=== PATIENT | male | born 1990 | race Caucasian/White ===

== ENCOUNTER → 2022-07-29 23:20 | Outpatient (CLI) | payer BC, SELFPAY ==
[2022-07-29 18:15] LABS: Basophils % 0.3 % (0.1-2.0); Eosinophils # 0.1 K/mm3 (0.0-0.4); Eosinophils % 1.1 % (0.1-12.0); Hematocrit 48.2 % (42.0-52.0); Hemoglobin 16.3 g/dL (14.1-18.0); Lymphocytes # 1.5 K/mm3 (0.7-4.5); Lymphocytes % 15.3 % (10-50); Mean Corpuscular HGB Conc 33.9 g/dL (31.8-35.4); Mean Corpuscular Hemoglobin 30.6 pg (27.0-31.2); Mean Corpuscular Volume 90.2 fl (80-94); Mean Platelet Volume 9.2 fl (7.4-10.4); Monocytes # 0.4 K/mm3 (0.1-1.0); Monocytes % 4.4 % (1.7-9.3); Neutrophils # 7.6 K/mm3 (1.8-7.8); Platelet Count 317 K/mm3 (142-424); Red Blood Count 5.35 M/mm3 (4.60-6.20); Red Cell Distribution Width 13.6 % (11.5-17.5); White Blood Count 9.6 K/mm3 (4.8-10.8)
[2022-07-29 18:20] LABS: Hemoglobin A1C 4.7 % (4.0-6.0)
[2022-07-29 18:48] LABS: Alanine Aminotransferase 48 U/L (12-78); Albumin/Globulin Ratio 1.9 (1.1-1.8); Alkaline Phosphatase 116 U/L (38-126); Anion Gap 17.4 mEq/L (5-15); Aspartate Amino Transferase 35 U/L (17-59); Bilirubin,Total 1.5 mg/dl (0.2-1.3); Blood Urea Nitrogen 11 mg/dl (9-20); Calcium 9.4 mg/dl (8.4-10.2); Carbon Dioxide 22 mmol/L (22.0-30.0); Chloride 105 mmol/L (98-107); Chol/HDL Ratio 6.9 (1-3.5); Cholesterol 249 mg/dl (140-200); Estimated Glomerular Filt Rate 97 ml/min (>60); GFR (African American) 118 ML/MIN (>60); Globulin 2.6 g/dL (1.3-3.2); Glucose 124 mg/dl (74-100); HDL Cholesterol 36 mg/dl (40-60); Potassium 4.4 mmoL/L (3.5-5.1); Sodium 140 mmol/L (136-145); Total Protein,Serum 7.6 g/dl (6.3-8.2); Triglycerides 262 mg/dl (30-150); VLDL Cholesterol 52 mg/dL (0-40)
[2022-07-29 18:59] LABS: Direct LDL Cholesterol 144.62 mg/dL (100-129)
[2022-07-29 19:04] LABS: 25-OH Vitamin D, Total 21.9 ng/mL (30-100)
[2022-07-29 19:19] LABS: Thyroid Stimulating Hormone 0.75 uIU/mL (0.465-4.68)
[2022-07-29 19:38] LABS: Vitamin B12 429 pg/mL (239-931)
== END ==
PROVIDERS: PCP Student in an Organized Health Care Education/Training Program; Visit Provider Student in an Organized Health Care Education/Training Program
DX: Z83.3 Family history of diabetes mellitus (principal); R20.0 Anesthesia of skin; R20.2 Paresthesia of skin; E55.9 Vitamin D deficiency, unspecified; R03.0 Elevated blood-pressure reading, without diagnosis of hypertension; Z79.899 Other long term (current) drug therapy
CPT/HCPCS: 80053; 80061; 82306; 82607; 83036; 84443; 85025

== ENCOUNTER → 2022-12-08 07:13 | Outpatient (CLI) | payer BC, SELFPAY ==
[2022-12-07 21:43] LABS: Chol/HDL Ratio 6.3 (1-3.5); Cholesterol 264 mg/dl (140-200); HDL Cholesterol 42 mg/dl (40-60); Triglycerides 241 mg/dl (30-150); VLDL Cholesterol 48 mg/dL (0-40)
[2022-12-07 21:54] LABS: Direct LDL Cholesterol 177.38 mg/dL (100-129)
[2022-12-07 22:02] LABS: 25-OH Vitamin D, Total 23.3 ng/mL (30-100)
== END ==
PROVIDERS: PCP Student in an Organized Health Care Education/Training Program; Visit Provider Student in an Organized Health Care Education/Training Program
DX: E55.9 Vitamin D deficiency, unspecified (principal); Z68.26 Body mass index [BMI] 26.0-26.9, adult; Z72.0 Tobacco use
CPT/HCPCS: 80061; 82306

== ENCOUNTER 2024-09-19 21:00 | Emergency (ER) | payer BC, SELFPAY ==
--- OUTSIDE RECORDS SUMMARY | 2024-09-19 21:08 | XMS_ITS | Clinical Summary ---
[facility] Address [address] [place] [address] Care Team Providers Care Museum Or Zoo Director Name Role Phone Kolton Ch Primary Care Provider [phone] Allergies No known active allergies Medications * This document contains information received from the source organization and may not represent a complete record from that organization. simvastatin (Zocor) 10 MG tabletIndications: Mixed hyperlipidemia Take 1 tablet by mouth Every Night. 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 Resolved Problems Problem Noted Date Diagnosed Date Resolved Date Cigarette nicotine dependenc e without complication 03/02/2017 05/02/2018 Immunizations Immunization Administration Dates Next Due COVID-19 (MODERNA) 1st,2nd,3rd Dose Monovalent 0 05/28/2020,05/14/2020 Fluzone >6mos 11/06/2018 Fluzone (or Fluarix & Flulaval for VFC) >6mos Fluzone Quad >6mos (Multi-dose) 11/06/2018 Influenza, Unspecified 02/18/2020 Tdap 02/18/2020 Family History Medical History Relation Name Comments Cancer Father Hyperlipidemia Father Diabetes Mother Heart disease Mother Hypertension Mother Relation Name Status Comments Father Mother Social History Tobacco Use Types Packs/Day Years Used Date Smoking Tobacco: Former Cigarettes Q uit: 02/26/2018 Smokeless Tobacco: Never Tobacco Cessation:Counseling Given: Not Answered Alcohol Use Standard Drinks/Week Comments Yes 0 (1 standard drink = 0.6 oz pur e alcohol) occasionally PHQ-2 Answer Date Recorded Retired Total Score 1 02/18/2020 Abuse Screen Answer Date Recorded Unsafe at Home or Work/School Not on file Feels Threatened by Someone? Not on file 10/2022 Does Anyone Keep You from Co ntacting Others or Doint Things Outside the Home? Not on file 11/15/2022 Physical Sign of Abuse Present Not on file 1 Housing Stability Answer Date Recorded Current Living Arrangements Not on file 10/2022 Potentially Unsafe Housing Conditions Not on kemal e 11/15/2022 Family and Community Support Answer Robert e Recorded Help with Day-to-Day Activities Not on file 11/15/2022 Lonely or Isolated Not on file 11/15/2022 Employment Answer Date Recorded Do you want help finding or keeping work or a frankie b? Not on file 11/15/2022 Disabilities Answer Date Recorded Concentrating, Remembering, or Making Decisions Difficulty Not on file 11/15/2022 Doing Errands Independently Difficulty Not on fi le 11/15/2022 Education Answer Date Recorded Help with school or training? Not on file Preferred Language Not on file 11/15/2022 Sex and Gender Information Value Date Recorded Sex Assigned at Not on file Legal Sex Male 10:26 AM EDT Gender Identity Not on file Sexual Orientation Not on file Last Filed Vital Signs Vital Sign Reading Time Taken Comments Blood Pressure 132/80 01/25/2022 4:34 PM EST Pulse 84 01/25/2022 4:34 PM EST Temperature 37.6 C (99.6 F) 01/25/2022 4:34 PM EST Respiratory Rate 18 01/25/2022 4:34 PM EST Oxygen Saturation 98% 02/18/2020 8:15 AM EST Inhaled Oxygen Concentration - - Weight 80.7 kg (178 lb) 01/25/2022 4:34 PM EST Height 170.2 cm (5' 7 ) 01/25/2022 4:34 PM EST Body Mass Index 27.88 01/25/2022 4:34 PM EST Plan of Treatment Health Maintenance Due Date Last Done Comments ANNUAL PHYSICAL 02/17/2021 02/18/2020 LIPID PANEL 02/17/2021 02/18/2020, 04/08, 04/07/2016 COVID-19 Vaccine ( season) 2023 01/16/2021, 05/28/2020, 05/14/2020, Additional history exists INFLUENZA VACCINE 11/07/2024 02/18/2020, , 11/06/2018, Additional history exists TDAP/TD VACCINES (2 - Td or Tdap) 02/17/2030 02/18/2020 HEPATITIS C SCREENING Completed 02/18/2020 Pneumococcal Vaccine 0-49 Aged Out No longer eligible based on patient's age to complete this topic Procedures Procedure Name Priority Date/Time Associated Diagnosis Comments LIPID PANEL Routine 02/18/2020 8:45 AM EST Encounter for well adult exam without abnormal findings Encounter for lipid screening for cardiovascular disease HEPATITIS C ANTIBODY Routine 02/18/2020 8:45 AM EST Encounter for well adult exam without abnormal findings Need for hepatitis C screening test from Last 3 Months or Most Recently Relevant to Health Maintenance Results * Hepatitis C Antibody (02/18/2020 8:45 AM EST) Hep C Virus Ab 0.1 0.0 - 0.9 s/co ratio [facility] Comment: Negative: < 0.8 Indeterminate: 0.8 - 0.9 Positive: > 0.9 The CDC recommends that a positive HCV antibody result be followed up with a HCV Nucleic Acid Amplification test ([id number]). Blood 02/18/2020 8:45 AM EST 02/18/2020 Narrative [facility] (AMBULATORY) - 02/19/2020 5:07 AM EST Performed at: 02 - [address] [id number] [place] [employer]: Juan C De León PhD, Phone: [phone] Patient Fasting: Y Kolton [facility] BLOOD ORDERABLES Final Res ult [facility] (AMBULATORY) [address] [place] [id number], [facility] [address] [place] [address], [place] [phone] * (ABNORMAL) Lipid Panel (02/18/2020 8:45 AM EST) Total Cholesterol 238(H) 0 - 200 mg/dL [facility] Comment: Cholesterol Reference Ranges (U.S. Department of Health and Human Services ATP III Classifications) Desirable <200 mg/dL Borderline High 200-239 mg/dL High Risk >240 mg/dL Triglyceride Reference Ranges (U.S. Department of Health and Human Services ATP III Classifications) Normal <150 mg/dL Borderline High 150-199 mg/dL High 200-499 mg/dL Very High >500 mg/dL HDL Reference Ranges (U.S. Department of Health and Human Services ATP III Classifcations) Low <40 mg/dl (major risk factor for CHD) High >60 mg/dl ('negative' risk factor for CHD) LDL Reference Ranges (U.S. Department of Health and Human Services ATP III Classifcations) Optimal <100 mg/dL Near Optimal 100-129 mg/dL Borderline High 130-159 mg/dL High 160-189 mg/dL Very High >189 mg/dL Triglycerides 476(H) 0 - 150 mg/dL [facility] HDL Cholesterol 37(L) 40 - 60 mg/dL [facility] VLDL Cholesterol Chace 84(H) 5 - 40 mg/dL [facility] LDL Chol Calc (NIH) 117(H) 0 - 100 mg/dL [facility] Blood 02/18/2020 8:45 AM EST 02/18/2020 Narrative [facility] ([facility]) - 02/19/2020 5:07 AM EST Performed at: [address] [place] [id number] [place] [employer]: Max Escalante MD, Phone: [phone] Patient Fasting: Y us Kolton [facility] BLOOD ORDERABLES Final Res ult [facility] (AMBULATORY) [address] [place] [address], [facility] [address] [place] [address], from Last 3 Months or Most Recently Relevant to Health Maintenance Insurance [facility] PPO Care Teams Museum Or Zoo Director Relationship Specialty Start Date End Date [place] [address] PCP - General Physician Gear Setter 01/25/22
[2024-09-19 21:15] VITALS: BP 171/96; PULSE 126; RESP 16; TEMP 37; O2SAT 100; BMI 25.0
[2024-09-19 21:20] VITALS: BP 171/96; PULSE 126; RESP 16
--- NOTE | 2024-09-19 21:25 | ECG_ITS ---
APPROVED REPORT Exam: Resting ECG HR:96 bpm ECG Measurements Heart Rate 96 AXES VA 174 P 63 QRSd 94 QRS 81 QT 343 T 72 QTc 397 Conclusion SINUS RHYTHM INCOMPLETE RIGHT BUNDLE BRANCH BLOCK [90+ ms QRS DURATION, TERMINAL R IN V1/V2, 40+ ms S IN I/aVL/V4/V5/V6] BORDERLINE ECG UNCONFIRMED REPORT Electronically signed by : CROW BROWN, 09/21/2024 00:38:20
[2024-09-19 21:31] VITALS: BP 152/88; PULSE 103; O2SAT 100
--- NOTE | 2024-09-19 21:33 | ED_ITS ---
Discharge Plan Disposition Patient Disposition: Home, Self-Care Prescriptions Prescriptions: No Action escitalopram oxalate [Lexapro] 20 mg tablet 20 mg PO DAILY Qty: 30 2RF Caplyta 42 mg capsule 42 mg PO DAILY Qty: 30 1RF Caplyta 42 mg capsule 0RF cholecalciferol (vitamin D3) 50 mcg (2,000 unit) capsule 50 mcg PO DAILY Qty: 60 2RF sildenafil 25 mg tablet 25 mg PO DAILY PRN (Reason: sexual activity) Qty: 20 0RF Rx Instructions: administer 30 minutes to 4 hours before activity Referrals Follow up/Referrals: Starla Hurtado APRN [Primary Care Provider, Behavioral Health] - See instructions Activity Restrictions/Add. Instructions Additional Instructions/Restrictions: Follow-up with your behavioral health specialist tomorrow to discuss your current medication regimen. If you develop any new or worsening symptoms, or if you become concerned for your health for any reason, return to the emergency department for evaluation. Clinical Impressions Clinical Impression: Anxiety attack Print Language Print Language: Slovenian Discharge ED Provider: Nathaniel Terrell Adult HPI General Chief complaint: Recheck/Abnormal Lab/Rx Stated complaint: shaky,temp high and low,feels off Time Seen by Provider: 09/19/24 21:33 Mode of Arrival: Ambulatory Source of Information: Patient and Spouse Description of Symptoms (Recalled from ER Triage Doc. by RN): pt presents to the Ed d/t compliants of being sweaty, on edge and having anxiety. pt stated this started on a few days ago. pt takes 42mg of caplyta, and 20 mg of escitalopram. pt states he is anxious at times. pt admits to smoking weed and alcohol occasionally. History of Present Illness HPI narrative: Max Tamez is a 34-year-old male with a past medical history of anxiety on escitalopram and recently started on Caplyta who presents to the emergency department for concern for serotonin syndrome. Patient states that over the last few days, he has been feeling increasingly anxious, breaking out into a sweat, and feeling tingling in his hands. He states that he was taken off of bupropion and started on Caplyta approximately a month ago by behavioral health team here in [place]. He states that he had a telehealth appointment today and received a call back from a provider saying that they wanted him to come to the emergency department for concern for serotonin syndrome. Patient denies any chest pain but does feel mildly short of breath at times. He states that he also feels tremulous, but notes that he has a tremor at baseline but feels that it is worse than normal Related Data Previous Rx's ?Medication ?Instructions ?Recorded cholecalciferol (vitamin D3) 50 50 mcg PO DAILY #60 ca ps 12/08/22 mcg (2,000 unit) capsule sildenafil 25 mg tablet 25 mg PO DAILY PRN sexual ac tivity 05/06/23 #20 tabs escitalopram oxalate 20 mg tablet 20 mg PO DAILY #30 t abs 08/15/24 (Lexapro) lumateperone 42 mg capsule 42 mg PO DAILY #30 caps 11/01 (Caplyta) Allergies Allergy/AdvReac Type Severity Reaction Status Date / Time No Known Allergies Allergy Verified 08/15/24 13:29 [facility] Disclaimer: The information contained in this section may have been updated after the patient was seen, as this information can be updated by other users. Medical History Anxiety Vitamin D deficiency Family history of heart disease Tobacco use Erectile dysfunction Surgical History History of third molar tooth extraction Family History Mother Hypertension Diabetes Social History Smoking Status: Current every day smoker alcohol intake: current alcohol intake frequency: a few times a week current occupational status: employed Travel in the last 8 weeks?: None Have you lived/traveled outside US in past 30 days?: No Contact w/someone who lives/traveled outside US past 30 days?: No Exposure to someone with infectious disease in past 14 days?: No Do you have a fever (greater than 100.4 F or 38 C)?: No Have you tested positive for COVID-19?: No Exposed to someone with COVID-19 in past 14 days?: No Do you have a sore throat?: No Do you have a cough?: No Do you have any weakness?: No Do you have any diarrhea?: No Are you experiencing any unusual bleeding?: No Do you have any muscle aches/pain?: No Do you have any abdominal pain?: No Are you experiencing loss of taste or smell?: No Other Medical History Have you received the Pneumonia Vaccine: No ROS Obtained: Yes Systems reviewed as appropriate & no additional complaints except as documented Physical Exam General General appearance: alert, in no apparent distress and anxious Head Head exam: atraumatic Eye Eye exam: Present normal appearance; Absent PERRL or EOMI ENT ENT exam: Present normal external ear exam Neck Neck exam: Present full ROM Chest Chest inspection: Present symmetric chest wall rise Respiratory Respiratory exam: Present normal lung sounds bilaterally; Absent respiratory distress, wheezes or stridor Cardiovascular Cardiovascular exam: Present regular rate and normal rhythm Abdominal Exam Abdominal exam: Present soft; Absent distention, tenderness or guarding exam: Present deferred Extremities Exam Extremities exam: Present normal inspection Back Exam Back exam: Present normal inspection Neurological Exam Neurological exam: Present alert, oriented X3, CN II-XII intact, normal gait, reflexes normal and other (no clonus. Normal fdxctt-og-yiow testing but with mild resting tremor. No dysdiadochokinesia. Normal ysru-om-slqz testing); Absent motor sensory deficit Psychiatric Psychiatric exam: Present normal affect and anxious Skin Skin exam: Present warm and dry Medical Decision Making Medical Records Screening: Per USPSTF and CDC recommendations, given the prevalence of disease in our region, it is our hospital?s policy to screen for HIV and viral Hepatitis for all patients aged 18 and over and those with ongoing risk factors. Lee Inquiry Pt receiving controlled substance: No Vital Signs: 09/19/24 21:15 09/19/24 21:20 09/19/24 21:31 Temperature 98.6 F Temperature Source Oral Pulse Rate 103 H Pulse Rate [Right Radial] 126 H 126 H Respiratory Rate 16 16 Blood Pressure 152/88 H Blood Pressure [Right Arm] 171/96 H 171/96 H Blood Pressure Mean [Right Arm] 121 121 Blood Pressure Position [Right Arm] Supine 02 Sat by Pulse Oximetry 100 100 Oxygen Delivery Method Room Air 09/19/24 23:21 Temperature 97.9 F Temperature Source Pulse Rate 90 Pulse Rate [Right Radial] Respiratory Rate 20 Blood Pressure 148/76 H Blood Pressure [Right Arm] Blood Pressure Mean [Right Arm] Blood Pressure Position [Right Arm] 02 Sat by Pulse Oximetry Oxygen Delivery Method Room Air Lab Data Lab Results 09/19/24 22:05: WBC 13.8 H, RBC 4.83, Hgb 15.2, Hct 43.0, MCV 89.0, MCH 31.5 H, MCHC 35.3, RDW 12.6, Plt Count 273, MPV 9.2, Neut % (Auto) 83.5 H, Lymph % (Auto) 10.7, [place] % (Auto) 4.9, Eos % (Auto) 0.1, Baso % (Auto) 0.4, Neut # (Auto) 11.5 H, Lymph # (Auto) 1.5, [place] # (Auto) 0.7, Eos # (Auto) 0.0, Baso # (Auto) 0.1, Sodium 138, Potassium 3.5, Chloride 103, Carbon Dioxide 23, Anion Gap 15.5 H, BUN 12, Creatinine 1.00, Estimated Creat Clear 106, Estimated GFR 85, Est GFR ( Amer) 103, Glucose 184 H, Calcium 9.9, Total Bilirubin 1.8 H, AST 34, ALT 46, Alkaline Phosphatase 83, Total Protein 8.0, Albumin 5.1 H, Globulin 2.9, Albumin/Globulin Ratio 1.8, Lipase 212, TSH 0.84, Free T4 1.38 09/19/24 22:05 09/19/24 22:05 Orders (Tests/Meds): ED MEDICATIONS Discontinued Medications Generic Name Dose Route Start Last Admin Trade Name Freq PRN Reason Stop Dose Admin Lorazepam 1 mg 09/19/24 21:45 09/19/24 21:53 Lorazepam 1mg Tablet PO 09/19/24 21:46 1 mg ONCE ONE Administration ORDERS Category Date Time Status CXR --portable [XR chest portable] Stat Exams 09/19/24 21:45 Completed CBC w/Auto Diff [Complete Blood Count Auto Diff] Stat Lab 09/19/24 22:05 Completed CMP [Comprehensive Metabolic Panel] Stat Lab 09/19/24 22:05 Completed Free T4 (Free Thyroxine) Stat Lab 09/19/24 22:05 Completed Lipase Stat Lab 09/19/24 22:05 Completed TSH [Thyroid Stimulating Hormone] Stat Lab 09/19/24 22:05 Completed Medical Decision Narrative: Max Tamez is a 34-year-old male with a past medical history of anxiety on escitalopram and recently started on Caplyta who presents to the emergency department for concern for serotonin syndrome. Patient states that over the last few days, he has been feeling increasingly anxious, breaking out into a sweat, and feeling tingling in his hands. He states that he was taken off of bupropion and started on Caplyta approximately a month ago by behavioral health team here in [place]. He states that he had a telehealth appointment today and received a call back from a provider saying that they wanted him to come to the emergency department for concern for serotonin syndrome. Patient denies any chest pain but does feel mildly short of breath at times. He states that he also feels tremulous, but notes that he has a tremor at baseline but feels that it is worse than normal. On arrival, patient is hemodynamically stable but mildly tachycardic. Breathing comfortably on room air with appropriate oxygen saturation. Afebrile. Physical exam, as stated above, revealed an anxious appearing male in no respiratory distress. He does not appear diaphoretic at this time. Cardiopulmonary exam is unremarkable. He does have a resting tremor but notes that he has a tremor at baseline that seems to be mildly worse than normal at this time. Complete neuroexam was performed and was unremarkable with no cranial nerves deficits, no cerebellar signs, no clonus and reflexes were 2+ throughout the patellar, Achilles, triceps and brachial radialis bilaterally. Differential diagnosis includes, but is not limited to: Panic attack, hyperthyroidism, electrolyte derangement, metabolic derangement, low concern for alcohol withdrawal this patient stated he only drinks occasionally and low concern for serotonin syndrome at this time given normal reflexes and no evidence of clonus. The most morbid conditions were considered and workup was based on these. Workup in the emergency department included: Chest x-ray, CBC with differential, CMP, TSH/free T4, lipase, chest x-ray. Patient was administered 1 mg of p.o. Ativan. Chest x-ray interpreted by me personally. No focal consolidation, no pneumothorax, no widened mediastinum, no enlargement of the cardiac silhouette. Unremarkable chest x-ray. See radiology report for details. Laboratory studies were interpreted by me personally. mild leukocytosis of 13.8, no anemia, platelets within normal limits, electrolytes within normal limits, mildly elevated anion gap of 15.5, no GISSELL, glucose normal at 184, bilirubin is mildly elevated at 1.8, however it has been elevated in the past and was 1.5 in July 2022. Liver enzymes otherwise unremarkable. Lipase normal 212. Thyroid studies within normal limits. On reassessment, patient reported improvement in his symptoms after the Ativan. His tachycardia has improved. Given there is low concern for serotonin syndrome or other emergent etiology, is felt the patient is appropriate for discharge at this time. He is instructed to follow-up with his behavioral health specialist tomorrow for further guidance. Return precautions were given. All questions were answered. He demonstrated understanding and was agreement this plan. He was then discharged from the emergency department in stable condition. Critical Care Critical Care Time Critical Care Time: No
--- NOTE | 2024-09-19 21:45 | XR_ITS ---
PROCEDURE INFORMATION: Exam: XR Chest Exam date and time: 09/19/2024 9:51 PM Age: 34 years old Clinical indication: Shortness of breath TECHNIQUE: Imaging protocol: Radiologic exam of the chest. Views: 1 view. COMPARISON: No relevant prior studies available. FINDINGS: Lungs: Unremarkable. No consolidation. Pleural spaces: Unremarkable. No pleural effusion. No pneumothorax. Heart/Mediastinum: Unremarkable. No cardiomegaly. Bones/joints: Unremarkable. IMPRESSION: No acute findings.
[2024-09-19 22:15] LABS: Hematocrit 43.0 % (42.0-52.0); Hemoglobin 15.2 g/dL (14.1-18.0); Immature Granulocytes % 0.4 %; Mean Corpuscular HGB Conc 35.3 g/dL (31.8-35.4); Mean Corpuscular Hemoglobin 31.5 pg (27.0-31.2); Mean Corpuscular Volume 89.0 fl (80-94); Nucleated Red Blood Cells % 0 %; Platelet Count 273 K/mm3 (142-424); Red Blood Count 4.83 M/mm3 (4.60-6.20); Red Cell Distribution Width-SD 41.0 fL; White Blood Count 13.8 K/mm3 (4.8-10.8)
[2024-09-19 22:19] LABS: Albumin Level 5.1 g/dl (3.5-5.0); Chloride 103 mmol/L (98-107); Potassium 3.5 mmoL/L (3.5-5.1); Sodium 138 mmol/L (136-145)
[2024-09-19 22:22] LABS: Alanine Aminotransferase 46 U/L (12-78); Albumin/Globulin Ratio 1.8 (1.1-1.8); Alkaline Phosphatase 83 U/L (38-126); Anion Gap 15.5 mEq/L (5-15); Aspartate Amino Transferase 34 U/L (17-59); Bilirubin,Total 1.8 mg/dl (0.2-1.3); Blood Urea Nitrogen 12 mg/dl (9-20); Carbon Dioxide 23 mmol/L (22.0-30.0); Creatinine Clearance Estimated 106 mL/min (50-200); Creatinine,Serum 1.00 mg/dl (0.66-1.25); Estimated Glomerular Filt Rate 85 ml/min (>60); GFR (African American) 103 ML/MIN (>60); Globulin 2.9 g/dL (1.3-3.2); Lipase 212 U/L (23-300); Total Protein,Serum 8.0 g/dl (6.3-8.2)
[2024-09-19 22:23] LABS: Calcium 9.9 mg/dl (8.4-10.2); Glucose 184 mg/dl (74-100)
[2024-09-19 22:43] LABS: Free T4 (Free Thyroxine) 1.38 ng/dl (0.78-2.19)
[2024-09-19 22:53] LABS: Thyroid Stimulating Hormone 0.84 uIU/mL (0.465-4.68)
[2024-09-19 23:21] VITALS: BP 148/76; PULSE 90; RESP 20; TEMP 36.6; O2SAT 99
== END 2024-09-19 23:24 | disposition home or self-care (01) ==
PROVIDERS: Emergency Provider Student in an Organized Health Care Education/Training Program
DX: R00.0 Tachycardia, unspecified (principal); F41.1 Generalized anxiety disorder; F17.210 Nicotine dependence, cigarettes, uncomplicated
CPT/HCPCS: 71045; 80053; 83690; 84439; 84443; 85025; 93005; 99284

== ENCOUNTER 2024-09-22 10:15 | Emergency (ER) | payer BC, SELFPAY ==
[2024-09-22] VITALS (11 sets, daily range): BP systolic 112–129; BP diastolic 68–94; PULSE 70–112; RESP 16–20; TEMP 36.6–36.9; O2SAT 96–100; BMI 25.8
--- NOTE | 2024-09-22 10:13 | ECG_ITS ---
APPROVED REPORT Exam: Resting ECG HR:77 bpm ECG Measurements Heart Rate 77 AXES WV 167 P 49 QRSd 85 QRS 73 QT 354 T 65 QTc 386 Conclusion NSR Normal axis Normal intervals No STEMI Electronically signed by : Idris Amador, 09/22/2024 15:43:13
--- OUTSIDE RECORDS SUMMARY | 2024-09-22 10:21 | XMS_ITS | Clinical Summary ---
[facility] Address [address] [place] [address] Care Team Providers Care Morning News Producer Name Role Phone Kolton Ch Primary Care Provider [phone] Allergies No known active allergies Medications * [...] Last Done Comments ANNUAL PHYSICAL 02/17/2021 02/18/2020 COVID-19 Vaccine ( season) 2023 01/16/2021, 05/28/2020, 05/14/2020, Additional history exists INFLUENZA VACCINE 11/07/2024 02/18/2020, , 11/06/2018, Additional history exists TDAP/TD VACCINES (2 - Td or Tdap) 02/17/2030 02/18/2020 HEPATITIS C SCREENING Completed 02/18/2020 Pneumococcal Vaccine 0-49 Aged Out No longer eligible based on patient's age to complete this topic Procedures Procedure Name Priority Date/Time Associated Diagnosis Comments HEPATITIS C ANTIBODY Routine 02/18/2020 8:45 AM [...] with a HCV Nucleic Acid Amplification test ([id number]). Blood 02/18/2020 8:45 AM EST 02/18/2020 Narrative [facility] (AMBULATORY) - 02/19/2020 5:07 AM EST Performed at: 02 - [address] [id number] Supervisor Laboratory: Juan C De León PhD, Phone: [phone] Patient Fasting: Y us Kolton [facility] BLOOD ORDERABLES Final Res ult [facility] ([facility]ULAT[facility]) [address] [place] [address], [facility] [address] [place] [address], from Last 3 Months or Most Recently Relevant to Health Maintenance Insurance [facility] PPO Care Teams Morning News Producer Relationship Specialty Start Date End Date Kolton Ch [place] [address] PCP - General Physician Industrial Gas Fitter 01/25/22
[2024-09-22 10:43] LABS: Hematocrit 44.7 % (42.0-52.0); Hemoglobin 15.9 g/dL (14.1-18.0); Immature Granulocytes % 0.4 %; Mean Corpuscular HGB Conc 35.6 g/dL (31.8-35.4); Mean Corpuscular Hemoglobin 31.7 pg (27.0-31.2); Mean Corpuscular Volume 89.0 fl (80-94); Nucleated Red Blood Cells % 0 %; Platelet Count 292 K/mm3 (142-424); Red Blood Count 5.02 M/mm3 (4.60-6.20); Red Cell Distribution Width-SD 41.5 fL; White Blood Count 11.0 K/mm3 (4.8-10.8)
[2024-09-22 10:49] LABS: Alanine Aminotransferase 38 U/L (12-78); Albumin Level 5.2 g/dl (3.5-5.0); Albumin/Globulin Ratio 1.9 (1.1-1.8); Alkaline Phosphatase 88 U/L (38-126); Anion Gap 21.9 mEq/L (5-15); Aspartate Amino Transferase 35 U/L (17-59); Bilirubin,Total 1.8 mg/dl (0.2-1.3); Blood Urea Nitrogen 17 mg/dl (9-20); Calcium 10.2 mg/dl (8.4-10.2); Carbon Dioxide 14 mmol/L (22.0-30.0); Chloride 107 mmol/L (98-107); Creatine Kinase 34 U/L (55-170); Creatinine Clearance Estimated 136 mL/min (50-200); Creatinine,Serum 0.80 mg/dl (0.66-1.25); Estimated Glomerular Filt Rate 110 ml/min (>60); GFR (African American) 133 ML/MIN (>60); Globulin 2.7 g/dL (1.3-3.2); Glucose 131 mg/dl (74-100); Potassium 3.9 mmoL/L (3.5-5.1); Sodium 139 mmol/L (136-145); Total Protein,Serum 7.9 g/dl (6.3-8.2)
[2024-09-22 10:53] LABS: D-Dimer 0.57 ug/mL (0.0-0.5)
[2024-09-22 11:12] LABS: Troponin I < 0.01 ng/ml (0.00-0.034)
[2024-09-22 11:20] LABS: Free T4 (Free Thyroxine) 1.47 ng/dl (0.78-2.19)
[2024-09-22 11:21] LABS: Thyroid Stimulating Hormone 0.52 uIU/mL (0.465-4.68)
[2024-09-22] MEDS: LACTATED RINGERS 1000ML 1,000 ML 999 ML IV (11:23)
[2024-09-22] MEDS: diazePAM 5MG TABLET 2.5 MG PO (11:23)
[2024-09-22 11:38] LABS: Hepatitis C Ab Qual. W/ RFX NEGATIVE (Negative)
--- NOTE | 2024-09-22 13:05 | ED_ITS ---
Discharge Plan Disposition Patient Disposition: Home, Self-Care Condition: Good Prescriptions Prescriptions: No Action escitalopram oxalate [Lexapro] 20 mg tablet 20 mg PO DAILY Qty: 30 2RF cholecalciferol (vitamin D3) 50 mcg (2,000 unit) capsule 50 mcg PO DAILY Qty: 60 2RF sildenafil 25 mg tablet 25 mg PO DAILY PRN (Reason: sexual activity) Qty: 20 0RF Rx Instructions: administer 30 minutes to 4 hours before activity lamotrigine [Lamictal] 25 mg tablet 25 mg PO DAILY 30 Days Qty: 42 0RF Rx Instructions: Take one tablet at bedtime for 2 weeks then increase to 2 tablets at bedtime for 2 weeks Referrals Follow up/Referrals: Provider,Referral, MD [Primary Care Provider, Medical] - See instructions Activity Restrictions/Add. Instructions Additional Instructions/Restrictions: Please follow up with your Behavioral Health provider later this week as discussed. I would avoid stimulants such as caffeine and nicotine. If you have any new or worsening symptoms please return. Clinical Impressions Clinical Impression: Distal paresthesia, Anxiety Print Language Print Language: [place]ralt[place] Discharge ED Provider: Idris Amador Adult HPI General Chief complaint: Psychiatric Symptoms Stated complaint: Panic attack Time Seen by Provider: 09/22/24 12:25 Mode of Arrival: EMS Source of Information: Patient Description of Symptoms (Recalled from ER Triage Doc. by RN): pt reports having a continuous panic attack. He describes it as numbness/tingling all over his body, unable to catch his breathe, SOA, lightheadedness, and shivering/sweating. pt states he was here a few nights ago for concern of serotonin syndrome. pt reports 1 mo ago starting caplyta 42mg by Anand PMHNP. Hurtado believes he may be having a adverse reaction to this and his last dose was Tuesday night. pt has since been started on a different mood stabilizer, possibly lamotrigene. pt has been consistently on 20mg escitalopram. pt denies chest pain. pt reports this feels the same as his previous panic attacks, however, this has been constant. History of Present Illness HPI narrative: This is a 34-year-old male patient, with past medical history of anxiety and bipolar disorder, who is presenting to the emergency department today for evaluation of a panic attack. The patient states that he was seen in the emergency department a couple of days ago for very similar symptoms. He had recently been started on a drug called Caplyta, and experienced significant adverse reaction to this medication that consisted of akathisia, paresthesias, and panic attacks. He was evaluated here in the emergency department on 09/19/2024 and had a laboratory workup that was normal. His symptoms resolved after Ativan and he was sent home. He was subsequently followed up by his behavioral health physician who discontinued the Caplyta and instructed him to discontinue taking his escitalopram that he has been taking for the last 10 years. He has stopped taking this medication over the last 2 days and today he woke up in his usual state of health, but after returning from the grocery store this morning he began experiencing recurrence symptoms including sweating, upper extremity paresthesias, shortness of breath, and akathisia. Related Data Previous Rx's ?Medication ?Instructions ?Recorded cholecalciferol (vitamin D3) 50 50 mcg PO DAILY #60 ca ps 12/08/22 mcg (2,000 unit) capsule sildenafil 25 mg tablet 25 mg PO DAILY PRN sexual ac tivity 05/06/23 #20 tabs escitalopram oxalate 20 mg tablet 20 mg PO DAILY #30 t abs 08/15/24 (Lexapro) lamotrigine 25 mg tablet (Lamictal) 25 mg PO DAILY 30 days #42 tabs 09/20/24 Allergies Allergy/AdvReac Type Severity Reaction Status Date / Time lumateperone (From Caplyta) AdvReac Anxiety Verified 09/22/24 10:24 [facility] Disclaimer: The information contained in this section may have been updated after the patient was seen, as this information can be updated by other users. Medical History Anxiety Vitamin D deficiency Family history of heart disease Tobacco use Erectile dysfunction Surgical History History of third molar tooth extraction Family History Mother Hypertension Diabetes Social History Smoking Status: Current every day smoker alcohol intake: current alcohol intake frequency: a few times a week current occupational status: employed Travel in the last 8 weeks?: None Have you lived/traveled outside [place] in past 30 days?: No Contact w/someone who lives/traveled outside [place] past 30 days?: No Exposure to someone with infectious disease in past 14 days?: No Do you have a fever (greater than 100.4 F or 38 C)?: No Have you tested positive for COVID-19?: No Exposed to someone with COVID-19 in past 14 days?: No Do you have a sore throat?: No Do you have a cough?: No Do you have any weakness?: No Do you have any diarrhea?: No Are you experiencing any unusual bleeding?: No Do you have any muscle aches/pain?: No Do you have any abdominal pain?: No Are you experiencing loss of taste or smell?: No Other Medical History Have you received the Pneumonia Vaccine: No ROS Obtained: Yes Systems reviewed as appropriate & no additional complaints except as documented Physical Exam General General appearance: other (See MDM) Respiratory Respiratory exam: Present other (See MDM) Cardiovascular Cardiovascular exam: Present other (See MDM) Neurological Exam Neurological exam: Present other (See MDM) Medical Decision Making Medical Records Medical records reviewed: Yes I reviewed the patient's medical records. Screening: Per USPSTF and CDC recommendations, given the prevalence of disease in our region, it is our hospital?s policy to screen for HIV and viral Hepatitis for all patients aged 18 and over and those with ongoing risk factors. Lee Inquiry Pt receiving controlled substance: No Lee was queried for this patient: No Vital Signs: 09/22/24 10:10 09/22/24 10:13 09/22/24 10:30 Temperature 98 F Temperature Source Oral Pulse Rate 98 H 95 H Pulse Rate [Left] 112 H Respiratory Rate 20 Blood Pressure 129/94 H 124/84 Blood Pressure [Right Arm] 129/94 H Blood Pressure Mean [Right Arm] 105 Blood Pressure Source [Right Arm] Automatic Cuff Blood Pressure Position [Right Arm] Sitting 02 Sat by Pulse Oximetry 100 98 100 Oxygen Delivery Method Room Air 09/22/24 11:00 09/22/24 11:30 09/22/24 12:00 Temperature Temperature Source Pulse Rate 75 78 86 Pulse Rate [Left] Respiratory Rate Blood Pressure 122/73 113/79 125/74 Blood Pressure [Right Arm] Blood Pressure Mean [Right Arm] Blood Pressure Source [Right Arm] Blood Pressure Position [Right Arm] 02 Sat by Pulse Oximetry 99 98 97 Oxygen Delivery Method 09/22/24 12:30 09/22/24 13:00 09/22/24 13:30 Temperature Temperature Source Pulse Rate 79 85 70 Pulse Rate [Left] Respiratory Rate Blood Pressure 129/75 112/73 114/68 Blood Pressure [Right Arm] Blood Pressure Mean [Right Arm] Blood Pressure Source [Right Arm] Blood Pressure Position [Right Arm] 02 Sat by Pulse Oximetry 97 98 99 Oxygen Delivery Method 09/22/24 14:00 09/22/24 14:27 Temperature 98.5 F Temperature Source Pulse Rate 75 87 Pulse Rate [Left] Respiratory Rate 16 Blood Pressure 122/79 122/79 Blood Pressure [Right Arm] Blood Pressure Mean [Right Arm] Blood Pressure Source [Right Arm] Blood Pressure Position [Right Arm] 02 Sat by Pulse Oximetry 96 Oxygen Delivery Method Lab Data Lab Results 09/22/24 10:13: WBC 11.0 H, RBC 5.02, Hgb 15.9, Hct 44.7, MCV 89.0, MCH 31.7 H, MCHC 35.6 H, RDW 12.6, Plt Count 292, MPV 9.7, Neut % (Auto) 76.4, Lymph % (Auto) 17.0, [place] % (Auto) 5.7, Eos % (Auto) 0.1, Baso % (Auto) 0.4, Neut # (Auto) 8.4 H, Lymph # (Auto) 1.9, Gar[place] # (Auto) 0.6, Eos # (Auto) 0.0, Baso # (Auto) 0.0, D-Dimer 0.57 H, Sodium 139, Potassium 3.9, Chloride 107, Carbon Dioxide 14 L, Anion Gap 21.9 H, BUN 17 D, Creatinine 0.80, Estimated Creat Clear 136, Estimated GFR 110, Est GFR ( Amer) 133 D, Glucose 131 H, Calcium 10.2, Total Bilirubin 1.8 H, AST 35, ALT 38, Alkaline Phosphatase 88, T otal Creatine Kinase 34 L, Troponin I < 0.01, Total Protein 7.9, Albumin 5.2 H, Globulin 2.7, Albumin/Globulin Ratio 1.9 H, TSH 0.52 D, Free T4 1.47, HCV Ab CLAIR w/Rflx PCR Qn Negative, HIV Ag/Ab Combo Qual Negative 09/22/24 10:13 09/22/24 10:13 Orders (Tests/Meds): ED MEDICATIONS Discontinued Medications Generic Name Dose Route Start Last Admin Trade Name Marivel PRN Reason Stop Dose Admin Diazepam 2.5 mg 09/22/24 11:15 09/22/24 11:23 Diazepam 5mg Tablet PO 09/22/24 11:16 2.5 mg ONCE ONE Administration Lactated Ringer's 1,000 mls @ 999 mls/hr 09/22/24 10:37 09/22/24 11:23 Lactated Ringer's 1000 Ml Bag IV 09/22/24 11:37 999 mls/hr .Q1H1M ONE Administration Lorazepam 1 mg 09/22/24 10:36 09/22/24 11:14 Lorazepam 2mg/Ml Vial IV 09/22/24 10:37 Not Given ONCE ONE Sodium Chloride 10 ml 09/22/24 10:36 Sodium Chloride 0.9% 10ml Vial IV 10/22/24 10:35 NEEDED PRN to Dilute Lorazepam inj ORDERS Category Date Time Status Behavioral Health Consult [Consult to Behavioral Health Cons 09/22/24 10:21 Active ] [CONS] Stat CBC w/Auto Diff [Complete Blood Count Auto Diff] Stat Lab 09/22/24 10:13 Completed CK [Creatine Kinase] Stat Lab 09/22/24 10:13 Completed CMP [Comprehensive Metabolic Panel] Stat Lab 09/22/24 10:13 Completed D-Dimer Stat Lab 09/22/24 10:13 Completed Free T4 (Free Thyroxine) Stat Lab 09/22/24 10:13 Completed HIV Combo Stat Lab 09/22/24 10:13 Completed Hepatitis C Ab Qual. W/ RFX Stat Lab 09/22/24 10:13 Completed TSH [Thyroid Stimulating Hormone] Stat Lab 09/22/24 10:13 Completed Troponin I Stat Lab 09/22/24 10:13 Completed ECG Data Tracing #1: I reviewed this ECG and interpreted as documented below: EKG personally interpreted by me demonstrates normal sinus rhythm with a rate of 77 bpm, normal axis, no TN prolongation, narrow QRS, no QTc prolongation. No ST elevation or depression. No overt signs of ischemia or arrhythmia Medical Decision Narrative: In summary, this is a 34-year-old male patient who is presenting to the emergency department today for evaluation of upper extremity paresthesias, shortness of breath, and akathisia in the setting of recently stopping a drug called Caplyta. This drug had recently caused this patient to develop the symptoms and he stopped taking the drug 3 days ago. His comorbidities do include anxiety as well as a history of bipolar 2 disorder. On initial evaluation of the patient he did appear to be acutely anxious and he was sweating. His blood pressure was normal, however he was slightly tachycardic. His heart and lung sounds were clear bilaterally. He had no lower extremity erythema or edema asymmetrically. On physical examination he was afebrile and he did not have any findings of hyperreflexia or ankle clonus. He does not have any muscle rigidity. Differential diagnosis includes anxiety, adverse drug reaction, electrolyte derangement, myocardial infarction, pulmonary embolus, among others. I have a low suspicion for neuroleptic malignant syndrome and serotonin syndrome, given my exam listed above. We proceeded with an EKG as well as hematologic labs. Initial interventions include 2.5 mg of diazepam given orally. Labs were personally interpreted by me and demonstrated no actionable normalities. Troponin is undetectably low. Thyroid studies are normal. his D- dimer is 0.57, however he does not necessitate further workup with a CT PE study per years criteria. We did reassess the patient after 2.5 mg of diazepam. The patient states that his symptoms have completely resolved and he feels much better. We have discussed limiting the use of stimulants such as caffeine and nicotine. I have also strongly encouraged him to follow-up with his behavioral health physician on Tuesday of this week as previously scheduled so that they are aware he is still experiencing the symptoms. At this time all questions have been answered and all parties are agreeable with the decision to discharge home Critical Care Critical Care Time Critical Care Time: No
== END 2024-09-22 14:28 | disposition home or self-care (01) ==
PROVIDERS: Emergency Provider Student in an Organized Health Care Education/Training Program
DX: R20.2 Paresthesia of skin (principal); F41.1 Generalized anxiety disorder; F17.210 Nicotine dependence, cigarettes, uncomplicated
CPT/HCPCS: 80053; 82550; 84439; 84443; 84484; 85025; 85378; 86803; 87389; 93005; 96360; 99284; J7120